=== PATIENT | female | born 1950 | race African-American/Black ===

== ENCOUNTER 2021-06-23 21:03 | Emergency (ER) | payer BC, OTHER ==
[~2021-06-23] VITALS: Ht 162.6 cm; Wt 111.8 kg
[~2021-06-23 21:03] MED LIST: ACET500C4 PO; AMOX500C2 PO; CYCL5TAB PO; DOCU50LI36 PO; HYDR25TA2 PO; LOSA-381 PO; RANO10003 PO
[2021-06-23 21:19] VITALS: BP 143/99
[2021-06-23] MEDS ORDERED: IBUP-1554 PO (23:12)
[2021-06-23] MEDS ORDERED: ACET-2080 PO (23:12)
[2021-06-23] MEDS ORDERED: ACETAMINOPHEN/CODEINE 300-30 MG TABLET PO ONE (23:15)
[2021-06-23] MEDS ORDERED: IBUPROFEN 600 MG TABLET PO ONE (23:15)
== END 2021-06-23 23:45 | disposition home or self-care (01) ==
LOC: EMS 21:09
DX: S93.402A Sprain of unspecified ligament of left ankle, initial encounter (principal); I25.10 Atherosclerotic heart disease of native coronary artery without angina pectoris; I11.0 Hypertensive heart disease with heart failure; I50.9 Heart failure, unspecified; Z87.19 Personal history of other diseases of the digestive system; Z98.890 Other specified postprocedural states; Z88.8 Allergy status to other drugs, medicaments and biological substances; X58.XXXA Exposure to other specified factors, initial encounter; Y93.89 Activity, other specified; Y92.89 Other specified places as the place of occurrence of the external cause; Y99.8 Other external cause status
CPT/HCPCS: 99283